=== PATIENT | male | born 1985 | race Caucasian/White ===

== ENCOUNTER 2017-11-06 05:35 | Emergency (ER) | payer BC ==
[~2017-11-06] VITALS: Ht 170.2 cm; Wt 72.6 kg
[2017-11-06 05:35] VITALS: BP 126/89
--- NOTE | 2017-11-06 05:35 | NUR ---
PT BIBA BLS. TAKEN TO BED 9
--- NOTE | 2017-11-06 05:35 | NUR ---
BIB EMS PT C/O WAKING UP APPROX 30 MIN AGO FEELING PALPITATIONS AND ANXIETY, ADMITS TO USING COCAINE YESTERDAY A FEW TIMES SINCE 1700 AND BEER. NO COMPLAINTS OF CP OR SOB. NO ACUTE DISTRESS NOTED. ON ASSESSMENT PT IS ANXIOUS AND FIDGETING IN STRETCHER AND C/O PALPITATIONS. PT HAS HX OF ANXIETY, NO MEDS AND NKA. PLACED ON FULL MONITOR AND EKG OBTAINED. WILL CONTINUE TO CLOSELY MONITOR. URINE ATTEMPTED TO BE OBTAINED.
[2017-11-06] MEDS ORDERED: LORazepam 1 MG TAB PO ONE ×2 (05:40→06:00)
--- NOTE | 2017-11-06 05:47 | NUR ---
Dr. Alfonso evaluating patient at bedside.
[2017-11-06 06:25] LABS: BARBITURATE, URINE NEG. ng/ml (NEG <=200); BENZODIAZEPINE, URINE NEG. ng/mL (NEG <=200); CANNABINOID, URINE NEG. ng/mL (NEG <=50); COCAINE, URINE POS. ng/mL (NEG <=300); OPIATE, URINE NEG. ng/mL (NEG <=2000); PHENCYCLIDINE SCREEN,URINE NEG. ng/mL (NEG <=25)
--- NOTE | 2017-11-06 06:58 | NUR ---
PATIENT ON STRETCHER IN NO ACUTE DISTRESS, FAMILY AT BEDSIDE.
--- NOTE | 2017-11-06 07:19 | NUR ---
REPORT GIVEN TO JONO PRITCHETT
[2017-11-06 07:26] VITALS: BP 133/82
== END 2017-11-06 07:25 | disposition home or self-care (01) ==
LOC: MED 05:35
DX: F14.90 Cocaine use, unspecified, uncomplicated (principal); R94.31 Abnormal electrocardiogram [ECG] [EKG]
CPT/HCPCS: 80305; 93005; 99285